=== PATIENT | male | born 1990 | race Two or more races ===

== ENCOUNTER 2022-04-16 07:53 | Emergency (ER) | payer OTHER ==
[~2022-04-16] VITALS: Ht 167.6 cm; Wt 90.7 kg
--- NOTE | 2022-04-16 07:54 | NUR ---
TO ER BED 4, BIB C/O "I THINK I HAD SEIZURE EPISODE LAST NIGHT. MY SAW EVERYTHING" WENT TO DIFFERENT HOSPITAL FOR SAME CC. AAOX3, BREATHING EVEN AND NON LABORED, AWAITING MD GARNER
--- NOTE | 2022-04-16 07:55 | NUR ---
REceived pt awake and alert respition spont and easy here for
--- NOTE | 2022-04-16 08:33 | NUR ---
IV LINE ESTABLISHED BLOOD DRAWN AND SENT TO LAB.
--- NOTE | 2022-04-16 08:37 | NUR ---
PT IS WHEELED TO CT SCAN VIA WHEELCHAIR.
[2022-04-16 08:47] LABS: BASOPHILS # (AUTO) 0.1 K/uL (0.0-0.2); BASOPHILS % (AUTO) 1.2 % (0.0-2.0); EOSINOPHILS % (AUTO) 5.5 % (0.0-6.0); HEMATOCRIT 43 % (39-51); HEMOGLOBIN 15.1 g/dL (13.5-17.5); LYMPHOCYTES # (AUTO) 1.9 K/uL (0.8-4.8); LYMPHOCYTES % (AUTO) 43.7 % (20.0-44.0); MEAN CORPUSCULAR HGB CONC 35 g/dl (31.0-36.0); MEAN CORPUSCULAR VOLUME 86 fL (80-96); MONOCYTES # (AUTO) 0.3 K/uL (0.1-1.30); MONOCYTES % (AUTO) 5.8 % (2.0-12.0); NEUTROPHILS # (AUTO) 1.9 K/uL (1.8-8.9); NEUTROPHILS % (AUTO) 43.8 % (43.0-81.0); PLATELET COUNT (AUTO) 234 K/uL (150-450); RED BLOOD CELL COUNT(AUTO) 5.03 MIL/uL (4.5-6.0); WHITE BLOOD COUNT (AUTO) 4.4 K/uL (4.3-11.0)
[2022-04-16 08:55] LABS: CALCIUM, SERUM 8.5 mg/dL (8.5-10.1); CARBON DIOXIDE 28 mmol/L (21-32); CHLORIDE 108 mmol/L (98-107); CREATININE 0.9 mg/dL (0.6-1.3); GLUCOSE 94 mg/dL (74-106); POTASSIUM 3.8 mmol/L (3.5-5.1); SODIUM SERUM 142 mmol/L (136-145); UREA NITROGEN, BLOOD 10 mg/dL (7-18)
--- NOTE | 2022-04-16 09:00 | NUR ---
resting and asleepy at this time
[2022-04-16 09:01] LABS: ALANINE AMINOTRANSFERASE 57 U/L (12-78); ALBUMIN 3.5 g/dL (3.4-5.0); ALKALINE PHOSPHATASE 76 U/L (46-116); ASPARTATE AMINOTRANSFERASE 21 U/L (15-37); BILIRUBIN,DIRECT 0.1 mg/dL (0.0-0.2); BILIRUBIN,TOTAL 0.6 mg/dL (0.2-1.0); TOTAL PROTEIN, SERUM 6.4 g/dL (6.4-8.2)
[2022-04-16 09:02] LABS: ALCOHOL, BLOOD < 3 mg/dL (0-0)
[2022-04-16 09:59] VITALS: BP 125/64
--- NOTE | 2022-04-16 09:59 | NUR ---
IV removed. Catheter intact and site benign. Pressure and 4x4 applied to site. No bleeding noted. Patient discharged to home in stable condition. Written and verbal after care instructions given. Patient verbalizes understanding of instruction.
== END 2022-04-16 10:00 | disposition home or self-care (01) ==
LOC: ER 08:00
DX: G25.3 Myoclonus (principal); G47.69 Other sleep related movement disorders; F17.200 Nicotine dependence, unspecified, uncomplicated
CPT/HCPCS: 36415; 70450-TC; 80048-TC; 80076-TC; 83605-TC; 85025-TC; G0480